=== PATIENT | female | born 1995 | race Caucasian/White ===

== ENCOUNTER 2025-03-09 01:46 | Emergency (ER) | payer MEDICAID ==
[~2025-03-09] VITALS: Ht 167.6 cm; Wt 93.0 kg
[2025-03-09 01:50] VITALS: TEMP 36.8; O2SAT 99
[2025-03-09] MEDS: KETOROLAC 15MG/ML VIAL IV NR (02:15)
[2025-03-09 02:40] VITALS: BP 112/70; PULSE 83; RESP 18
[2025-03-09] MEDS: KETOROLAC 15MG/ML VIAL IV ONE (02:40)
[2025-03-09] MEDS: LORAZEPAM 2MG/ML UD SYRINGE IV NR (02:40)
[2025-03-09] MEDS: LORAZEPAM 2MG/ML UD SYRINGE ONE (02:52)
[2025-03-09 04:01] LABS: BASOPHILS % 0.6 % (0.0-2.0); EOSINOPHILS % 0.8 % (0.0-5.0); HEMATOCRIT. 39.3 % (36.0-48.0); HEMOGLOBIN. 13.3 g/dL (12.0-16.0); LYMPHOCYTES % 28.3 % (20.0-50.0); MEAN PLATELET VOLUME 8.6 fl (7.4-10.4); MONOCYTES % 5.5 % (2.0-8.0); NEUTROPHILS % 64.8 % (40.0-76.0); PLATELET 317 x1000/uL (130-400); RED BLOOD CELL COUNT 4.53 mill/uL (4.2-5.4); RED CELL DISTRIBUTION WIDTH 13.0 % (11.6-14.6)
[2025-03-09 07:24] LABS: ASPARTATE AMINOTRANSFERASE 23 IU/L (<34); BILIRUBIN TOTAL 0.3 mg/dL (0.1-1.0); CREATININE 0.8 mg/dL (0.6-1.0); PROTEIN TOTAL 7.1 g/dL (6.0-8.3); UREA NITROGEN BLOOD 10 mg/dL (9-23)
[2025-03-09 07:26] LABS: TROPONIN I HIGH SENSITIVITY < 4 ng/L (3.0-34)
== END 2025-03-09 04:50 | disposition home or self-care (01) ==
LOC: ER 01:46
DX: R07.1 Chest pain on breathing (principal)
CPT/HCPCS: 99284; 96374; 71045; 96375; 80076; 80048; 83690; 85025; 85379; 84484; 36415; J1885; J2060